=== PATIENT | male | born 1965 | race Caucasian/White ===

== ENCOUNTER 2017-11-25 00:19 | Day surgery (SDC) | payer OTHER ==
[~2017-11-25] VITALS: Ht 172.7 cm; Wt 92.1 kg
[~2017-11-25 00:19] MED LIST: ACE500 PO; DIA5 PO; HYDR-4309 PO
[2017-11-25] MEDS ORDERED: PROPOFOL EMUL(*) 10MG/ML 20 ML 40 ML ONE (06:59)
[2017-11-25 07:30] VITALS: BP 136/85
[2017-11-25] MEDS ORDERED: LIDOCAINE/SOD BICARB 8.4% SYR ID ONE (08:00)
[2017-11-25] MEDS ORDERED: NORMOSOL R SOLN(*) 1000 ML BAG 1,000 ML IV PRN (08:00)
[2017-11-25 10:54] VITALS: BP 102/67
--- NOTE | 2017-11-25 10:55 | Post Operative Progress Note ---
Post Operative Progress Note Date: Nov 25, 2017 Time: 10:55 Surgeon: shalini Anesthesia: dr alarcon Pre-Op Diagnosis: screening colonoscopy Post-Op Diagnosis: diverticulosis left colon Procedure(s): colonoscopy SULY WHITTAKER MD Nov 25, 2017 10:55
--- NOTE | 2017-11-25 10:56 | Short(Outpt) Discharge Summary ---
Discharge Summary Reason for Hosp/Final Diag: (1) Encounter for screening colonoscopy Hospital Course & Plan: diverticulosis Departure Discharge to: Home Discharge Instructions Home Meds Discontinued Reported Medications [None] No Conflict Check 08/27/11 Discontinued Scripts Diazepam (VALIUM) 5 Mg Tablet, 5 MG PO Q6-8H, #15 TAB TAKE ONE TABLET BY MOUTH TWO TO THREE TIMES A DAY Prov:TAWANDA HERNANDEZ DO 07/16/13 Hydrocodone Bit/Acetaminophen (NORCO 5-325 TABLET) 1 Each Tablet, 1 EACH PO Q6- 8H, #20 Prov:TAWANDA HERNANDEZ DO 07/16/13 Diet: High Fiber Activity: As Tolerated SULY WHITTAKER MD Nov 25, 2017 10:56
[2017-11-25 11:19] VITALS: BP 94/65
[2017-11-25 11:43] VITALS: BP 110/82
[2017-11-25 11:44] VITALS: BP 113/74
--- NOTE | 2017-12-02 12:07 | NACHTIGAL COLONOSCOPY ---
EVENT DATE: November 25, 2017 SURGEON: Chris So MD ANESTHESIOLOGIST: John Lowe M.D. ANESTHESIA: IV Sedation BROADCAST ENGINEER: Staff PREOPERATIVE DIAGNOSIS Screening colonoscopy. POSTOPERATIVE DIAGNOSIS Left colonic diverticulosis. PROCEDURE PERFORMED Colonoscopy. DESCRIPTION OF PROCEDURE The patient was placed in the left lateral decubitus position and given intravenous sedation. The rectal examination was unremarkable The flexible colonoscope was inserted and advanced to the cecum. He had an excellent bowel prep. The ileocecal valve and base of the cecum were identified. The scope was slowly withdrawn. Care was taken to look behind the haustral folds. No abnormalities were noted in the cecum, right colon or in the transverse colon. In the descending and sigmoid colon, he had diverticulosis. No evidence of diverticulitis. No narrowing was noted. The rectum was normal. The scope was retroflexed and that appeared to be normal. [facility]
== END 2017-11-25 12:00 | disposition home or self-care (01) ==
LOC: OR 00:19
PROVIDERS: ATTEND Surgery
DX: Z12.11 Encounter for screening for malignant neoplasm of colon (principal); K57.30 Diverticulosis of large intestine without perforation or abscess without bleeding
CPT/HCPCS: 00812; 45378; J2704

== ENCOUNTER → 2018-04-28 | Outpatient (CLI) | payer OTHER ==
[~2018-04-28] MED LIST changes: -HYDR-4309 PO; +HYDR-653 PO
--- NOTE | 2018-04-28 10:00 | RADIOLOGY IMAGING REPORT ---
FACILITY: [facility] PATIENT NAME: Collins Sorto : 1965 MR: [id number] V: [id number] EXAM DATE: ORDERING PHYSICIAN: BINA GREENE TECHNOLOGIST: Location: [facility] [place] Patient: Collins Sorto : 1965 Visit/Account:[id number] Date of Sevice: 04/28/2018 ULTRASOUND OF THE SCROTUM AND TESTES COMPARISON: None available. HISTORY: Right epididymal mass, two weeks, lump inferior to the right testicle TECHNIQUE: Standard ultrasound of the testicles and scrotum with color flow and spectral analysis. FINDINGS: RIGHT: TESTICLE: 1.9 x 2.9 x 4.8. Normal homogeneous echogenicity. No masses. DOPPLER: Arteriovenous waveforms in the testicle are within normal limits. EPIDIDYMIS: No appreciable vascular abnormality. The head and body of the epididymis are unremarkabl e. There is masslike, heterogeneous enlargement of the tail measuring about 0.9 x 1.1 x 1.2 cm. Thi s is not hyperemic to suggest acute inflammation but it could be related to recent inflammation of th e has been pain. Otherwise this could represent an epididymal mass such as adenomatoid tumor. HYDROCELE: None VARICOCELE: None OTHER: Negative. LEFT: TESTICLE: 1.9 x 2.7 x 4.7. Normal homogeneous echogenicity. No solid appearing masses. There is a 3 x 4 mm cyst in the head. DOPPLER: Arteriovenous waveforms in the testicle are within normal limits. EPIDIDYMIS: Normal size and echogenicity. No focal epididymal mass or vascular abnormality. HYDROCELE: None VARICOCELE: Present, with vessels lateral to the left testicle measuring up to 5 mm with Valsalva man euver although these are not clearly evident/measured prior to Valsalva maneuver. OTHER: Negative. SCROTUM: Negative. IMPRESSION: 1. At the site of palpable concern there is masslike enlargement of the right epididymal tail to ab out 1.2 cm, which could represent residual enlargement from recent epididymitis or epididymal mass rousseau ch as adenomatoid tumor. Six-week ultrasound follow-up recommended to help differentiate. 2. Small left varicocele. 3. No evidence of intratesticular neoplasm. No evidence of right or left testicular torsion. Report Dictated By: Chico Mcneal at 04/28/2018 9:42 AM Report E-Signed By: Chico Mcneal at 04/28/2018 9:55 AM [place]
== END ==
LOC: US 00:33
PROVIDERS: ATTEND Urology
DX: N50.9 Disorder of male genital organs, unspecified (principal); I86.1 Scrotal varices
CPT/HCPCS: 76870

== ENCOUNTER → 2018-05-29 | Outpatient (REF) | payer OTHER | LOC: ZZSENDIN 12:00 | PROVIDERS: ATTEND Urology | DX: N41.1 Chronic prostatitis (principal); N42.89 Other specified disorders of prostate | CPT/HCPCS: 88305; 88344 ==